=== PATIENT | female | born 1930 | race Caucasian/White ===

== ENCOUNTER 2020-03-13 19:56 | Emergency (ER) | payer MEDICARE, OTHER ==
[2020-03-13] MEDS ORDERED: Ketorolac 30 MG/ML SDV IM STA (20:56)
[2020-03-13] MEDS ORDERED: traMADol 50 MG Tab PO ONE (20:56)
--- NOTE | 2020-03-13 21:43 | EDM.PDOC ---
ED HPI GENERAL MEDICAL PROBLEM - General Chief Complaint: General Stated Complaint: WEAKNESS Time Seen by Provider: 03/13/20 21:05 Source of Information: Reports: Patient, Family History Limitations: Reports: No Limitations - History of Present Illness INITIAL COMMENTS - FREE TEXT/NARRATIVE: Patient presented to the ED because of weakness for the past weak. She also fell last night and landed on her right hip although she was able to ambulate. There was no LOC after the fall. Patient said that she just stays in bed most of the time without any activity. There is no N/V/D. No cough and cold,fever, or chills. Right Hip Pain Score (Numeric/FACES): 5 - Related Data Allergies Allergy/AdvReac Type Severity Reaction Status Date / Time sulfamethoxazole AdvReac Nausea and Verified 09/23/15 12:47 [From Bactrim] Vomiting trimethoprim [From Bactrim] AdvReac Nausea and Verified 09/23/15 12:47 Vomiting Home Meds: Home Meds Aspirin [Low Dose Aspirin EC] 81 mg PO DAILY 09/23/15 [History] Calcium Carbonate/Vitamin D3 [Calcium 250+D] 1 each PO BID 09/23/15 [History] Lisinopril [Zestril] 20 mg PO DAILY 09/23/15 [History] Melatonin 3 mg PO BEDTIME 09/23/15 [History] Multivitamin [Multivitamins] 1 each PO DAILY 09/23/15 [History] Penciclovir [Denavir 1% Crm] 1 applic TOP ASDIRECTED 09/23/15 [History] hydroCHLOROthiazide [Hydrochlorothiazide] 12.5 mg PO DAILY 09/23/15 [History] Past Medical History Cardiovascular History: Reports: None - Infectious Disease History Infectious Disease History: Reports: None ED ROS GENERAL - Review of Systems Review Of Systems: See Below Constitutional: Reports: No Symptoms HEENT: Reports: No Symptoms Respiratory: Reports: No Symptoms Cardiovascular: Reports: No Symptoms Endocrine: Reports: No Symptoms GI/Abdominal: Reports: No Symptoms : Reports: No Symptoms Musculoskeletal: Reports: Other (hip pain-Right) Skin: Reports: No Symptoms Neurological: Reports: No Symptoms ED EXAM, GENERAL - Physical Exam Exam: See Below Exam Limited By: No Limitations General Appearance: Alert, No Apparent Distress Eye Exam: Bilateral Eye: PERRL Ears: Normal External Exam Nose: Normal Inspection, Normal Mucosa, No Blood Throat/Mouth: Normal Inspection, Normal Lips, Normal Teeth Head: Atraumatic, Normocephalic Neck: Normal Inspection, Supple, Non-Tender, Full Range of Motion Respiratory/Chest: No Respiratory Distress, Lungs Clear, Normal Breath Sounds Cardiovascular: Normal Peripheral Pulses, Regular Rate, Rhythm, No Edema, No Gallop, No JVD, No Murmur, No Rub GI/Abdominal: Normal Bowel Sounds, Soft, Non-Tender, No Organomegaly, No Distention, No Abnormal Bruit, No Mass Back Exam: Normal Inspection, Full Range of Motion Extremities: Normal Inspection, Normal Range of Motion, Other (tenderness rt hip ) Neurological: Alert, CN II-XII Intact Course - Vital Signs Text/Narrative:: Labs/Hip xray was discussed with patient and her son and verbalized full understanding. Last Recorded V/S: Last Vital Signs Temp 36.6 C 03/13/20 22:02 Pulse 72 03/13/20 22:02 Resp 20 03/13/20 22:02 BP 139/74 03/13/20 22:02 Pulse Ox 95 03/13/20 22:02 - Orders/Labs/Meds Orders: Active Orders 24 hr Category Date Time Status EKG Documentation Completion [RC] ASDIRECTED Care 03/13/20 20:13 Active Hip Min 2V or 3V w Pelvis Rt [CR] Stat Exams 03/13/20 20:58 Taken UA W/MICROSCOPIC [URIN] Stat Lab 03/13/20 20:12 Ordered EKG 12 Lead [EK] Routine Ther 03/13/20 20:13 Ordered Labs: Laboratory Tests 03/13/20 03/13/20 03/13/20 Range/Units 20:10 20:10 20:10 WBC 10.1 (4.5-12.0) X10-3/uL RBC 4.68 (3.23-5.20) x10(6)uL Hgb 12.3 (11.5-15.5) g/dL Hct 38.2 (30.0-51.3) % MCV 81.6 (80-96) fL MCH 26.2 L (27.7-33.6) pg MCHC 32.2 (32.2-35.4) g/dL RDW 12.7 (11.5-15.5) % Plt Count 425 H (125-369) X10(3)uL MPV 6.5 L (7.4-10.4) fL Neut % (Auto) 81.8 (46-82) % Lymph % (Auto) 12.4 L (13-37) % Hamlin % (Auto) 4.5 (4-12) % Eos % (Auto) 1 (1.0-5.0) % Baso % (Auto) 0 (0-2) % Neut # (Auto) 8.3 (1.6-8.3) # Lymph # (Auto) 1.2 (0.6-5.0) # Hamlin # (Auto) 0.5 (0.0-1.3) # Eos # (Auto) 0.1 (0.0-0.8) # Baso # (Auto) 0.0 (0.0-0.2) # Sodium 131 L (135-145) mmol/L Potassium 4.6 (3.5-5.3) mmol/L Chloride 93 L (100-110) mmol/L Carbon Dioxide 26 (21-32) mmol/L BUN 18 (7-18) mg/dL Creatinine 0.9 (0.55-1.02) mg/dL Est Cr Clr Drug Dosing TNP Estimated GFR (MDRD) 59 L (>60) BUN/Creatinine Ratio 20.0 (9-20) Glucose 130 H (80-116) mg/dL Calcium 9.2 (8.6-10.2) mg/dL Troponin I 6.9 (4.0-60.3) pg/mL Meds: Medications Discontinued Medications Generic Name Dose Route Start Last Admin Trade Name Alirioq PRN Reason Stop Dose Admin Ketorolac Tromethamine 30 mg 03/13/20 20:56 03/13/20 21:12 Toradol IM 03/13/20 20:57 30 mg NOW STA Administration Tramadol HCl 100 mg 03/13/20 20:56 Ultram PO 03/13/20 20:57 ONETIME ONE Departure - Departure Time of Disposition: 21:45 Disposition: Home, Self-Care 01 Condition: Good Clinical Impression: Weakness, Contusion, hip - Discharge Information Instructions: Weakness, [id number], Contusion, [id number] Referrals: Chepe Wright MD [Primary Care Provider] - Forms: ED Department Discharge Additional Instructions: Please read discharge instructions on weakness and hip contusion exercise at least 15-30 daily 5 times a week if you don't exercise your muscle gets wasted which can cause weakness ask your doctor for you to have a home physical therapy for you hip pain take aleve(2tablets) with tylenol 1000 mg every 12 hours as needed for pain follow up as needed Sepsis Event Note - Focused Exam Vital Signs: Vital Signs Temp Pulse Resp BP Pulse Ox 03/13/20 22:02 36.6 C 72 20 139/74 95 03/13/20 20:57 36.9 C 83 20 190/81 H 98 Date Exam was Performed: 03/13/20 Time Exam was Performed: 23:01 - My Orders Last 24 Hours: My Active Orders 03/13/20 20:12 UA W/MICROSCOPIC [URIN] Stat 03/13/20 20:13 EKG Documentation Completion [RC] ASDIRECTED EKG 12 Lead [EK] Routine 03/13/20 20:58 Hip Min 2V or 3V w Pelvis Rt [CR] Stat - Assessment/Plan Last 24 Hours: My Active Orders 03/13/20 20:12 UA W/MICROSCOPIC [URIN] Stat 03/13/20 20:13 EKG Documentation Completion [RC] ASDIRECTED EKG 12 Lead [EK] Routine 03/13/20 20:58 Hip Min 2V or 3V w Pelvis Rt [CR] Stat
[2020-03-13 22:53] VITALS: BP 139/74; PULSE 72
--- NOTE | 2020-03-14 17:13 | CR ---
INDICATION: Fall, right hip pain. RIGHT HIP WITH PELVIS: Frontal view of the pelvis and right hip and lateral view of the right hip were obtained 03/13/20 and revealed somewhat demineralized appearance compatible with osteoporosis - correlate clinically. Degenerative changes are noted of moderate degree at the sacroiliac joints. Hypertrophic degenerative changes and disc disease suggested at L4-5. Mild hypertrophic degenerative changes noted at the hip joints with the joint spaces fairly well preserved. A definite acute fracture or dislocation was not identified. A popcorn-like calcification is noted in the mid to left pelvis compatible with a calcified fibroid. IMPRESSION: 1. No acute fracture or dislocation. 2. Osteoarthritis. 3. Osteoporosis. 4. Calcified uterine fibroid. MTDD
== END 2020-03-13 22:15 | disposition home or self-care (01) ==
LOC: FB.ED 19:56
DX: S70.01XA Contusion of right hip, initial encounter (principal); R53.1 Weakness; Z88.2 Allergy status to sulfonamides; Z79.82 Long term (current) use of aspirin; Z79.899 Other long term (current) drug therapy; X58.XXXA Exposure to other specified factors, initial encounter
CPT/HCPCS: 36415; 73502-RT; 80048; 84484; 85025; 93005; 96372; 99285-25; A9270-GY; J1885